=== PATIENT | female | born 1970 | race Caucasian/White ===

== ENCOUNTER 2019-02-25 20:54 | Emergency (ER) | payer OTHER ==
[~2019-02-25] VITALS: Ht 147.3 cm; Wt 56.0 kg
[2019-02-25 20:59] VITALS: Ht 147.3 cm; Wt 56.0 kg
[2019-02-26] MEDS ORDERED: IBUP-1542 PO (01:53)
--- NOTE | 2019-02-26 01:57 | ERD ---
ER Documentation Chief Complaint Chief Complaint vaginal bleeding/abd pain x 15 minutes, states 14 weeks HPI 48-year-old female presents with vaginal bleeding for last day. She has a history of approximately 14-week by dates. She did however see her OB this week who told her there was no heart tones earlier in the week. Her last normal ultrasound was approximately 1 month ago. She did pass significant amount of blood and possibly clots or tissue at home. She is a G5 para 4. ROS All systems reviewed and are negative except as per history of present illness. Medications Home Meds Active Scripts Ibuprofen* (Motrin*) 600 Mg Tab, 600 MG PO Q6, #15 TAB Prov:JACOB GUO MD 02/26/19 Allergies Allergies: Coded Allergies: No Known Drug Allergies (Verified Allergy, Unknown, 02/25/19) PMhx/Soc Medical and Surgical Hx: pt denies Medical Hx, pt denies Surgical Hx Hx Alcohol Use: No Hx Substance Use: No Hx Tobacco Use: No Smoking Status: Never smoker FmHx Family History: No diabetes, No coronary disease, No other Physical Exam Vitals Vital Signs Date Temp Pulse Resp B/P (MAP) Pulse Ox O2 O2 Flow FiO2 Time Delivery Rate 02/26/19 98.0 68 16 114/75 98 Room Air 01:21 (88) 02/25/19 97.5 93 18 163/82 98 20:59 (109) Physical Exam Const: No acute distress Head: Atraumatic Eyes: Normal Conjunctiva ENT: Normal External Ears, Nose and Mouth. Neck: Full range of motion. No meningismus. Resp: Clear to auscultation bilaterally Cardio: Regular rate and rhythm, no murmurs Abd: Soft, non tender, non distended. Normal bowel sounds Skin: No petechiae or rashes Back: No midline or flank tenderness Ext: No cyanosis, or edema Neur: Awake and alert Psych: Normal Mood and Affect Result Diagram: 02/26/19 0301 02/26/19 0301 Results 24 hrs Laboratory Tests Test 02/25/19 22:40 02/25/19 23:44 02/26/19 03:01 Urine Color BRAEDEN Urine Clarity SLIGHTLY CLOUDY Urine pH 7.0 Urine Specific [place] 1.013 Urine Ketones NEGATIVE mg/dL Urine Nitrite NEGATIVE mg/dL Urine Bilirubin NEGATIVE mg/dL Urine Urobilinogen NEGATIVE mg/dL Urine Leukocyte Esterase NEGATIVE [place]/ul Urine Microscopic RBC > 182 /HPF Urine Microscopic WBC 7 /HPF Urine Bacteria FEW /HPF Urine Hemoglobin 3+ mg/dL Urine Glucose NEGATIVE mg/dL Urine Total Protein NEGATIVE mg/dl White Blood Count 11.2 10^3/ul 7.7 10^3/ul Red Blood Count 4.17 10^6/ul 3.38 10^6/ul Hemoglobin 13.0 g/dl 10.5 g/dl Hematocrit 37.4 % 30.8 % Mean Corpuscular Volume 89.7 fl 91.1 fl Mean Corpuscular Hemoglobin 31.2 pg 31.1 pg Mean Corpuscular 34.8 g/dl 34.1 g/dl Hemoglobin Concent Red Cell Distribution Width 12.3 % 12.5 % Platelet Count 169 10^3/UL 138 10^3/UL Mean Platelet Volume 11.1 fl 10.5 fl Immature Granulocytes % 0.400 % 0.300 % Neutrophils % 81.4 % 62.1 % Lymphocytes % 12.2 % 28.3 % Monocytes % 4.9 % 7.7 % Eosinophils % 0.8 % 1.2 % Basophils % 0.3 % 0.4 % Nucleated Red Blood Cells % 0.0 /100WBC 0.0 /100WBC Immature Granulocytes # 0.050 10^3/ul 0.020 10^3/ul Neutrophils # 9.1 10^3/ul 4.8 10^3/ul Lymphocytes # 1.4 10^3/ul 2.2 10^3/ul Monocytes # 0.6 10^3/ul 0.6 10^3/ul Eosinophils # 0.1 10^3/ul 0.1 10^3/ul Basophils # 0.0 10^3/ul 0.0 10^3/ul Nucleated Red Blood Cells # 0.0 10^3/ul 0.0 10^3/ul Beta HCG, Quantitative 340.7 mIU/ml Sodium Level 139 mmol/L Potassium Level 3.2 mmol/L Chloride Level 110 mmol/L Carbon Dioxide Level 23 mmol/L Anion Gap 6 Blood Urea Nitrogen 12 mg/dl Creatinine 0.54 mg/dl Est Glomerular Filtrat > 60 mL/min Rate mL/min Glucose Level 142 mg/dl Calcium Level 7.7 mg/dl Current Medications Medications Dose Sig/Sofia Start Time Status Last (Trade) Ordered Route PRN Stop Time Admin Dose Reason Admin Sodium 1,000 ml @ Q1H STAT 02/26/19 DC 02/26/19 Chloride 1,000 mls/hr IV 02:22 02/26/19 02:45 03:21 Procedures/MDM Pelvic ultrasound shows thickened endometrium without visualized intrauterine . No evidence of ectopic . Patient is Rh+. Quantitative hCG is 340. Urine shows no signs of infection or significant acute abnormalities except for hemoglobin. Patient has elevated blood pressure at 163/82. Pelvic exam with site engineer shows clots and tissue in the vaginal vault which were removed. Bleeding stopped after removing the clots and os was noted to be mostly closed. Follow-up ultrasound shows still thickened endometrium without intrauterine or ovoid lesion. Patient had another episode of bleeding and additional pelvic exam with site engineer was obtained. Additional clots were removed at this time tissue consistent with products of conception were removed. Bleeding subsequently stopped again. Patient did have what appears to be a vasovagal episode and dizziness /syncope while being up to use the bathroom. IV was obtained and patient was administered 1 L normal saline IV. hemoGlobin normal. After observation treatment and fluids patient was able to ambulate and felt much better without recurrent dizziness, patient had no further episodes of vaginal bleeding throughout the remainder of her ER course. Patient was discharged home with recommendations for recheck hormone level in 2 to 3 days, return precautions for fevers, recurrent bleeding, new worsening symptoms. Cu rrent signs and symptoms do not suggest ectopic , septic , acute surgical abdomen, hemorrhaging. Departure Diagnosis: Primary Impression: Incomplete miscarriage Additional Impression: Vaginal bleeding in patient at less than 20 weeks ges... Condition: Stable Patient Instructions: Miscarriage (Incomplete) Additional Instructions: no hay emarazo horita. Cheque otro vez con kan doctor primario en el proximo doan or regresa para mas o nueva simptomas. cheque hormones otro vez 2-3 days. JACOB GUO MD Feb 26, 2019 01:57
[2019-02-26] MEDS ORDERED: SOD CHLORIDE 0.9% 1,000 ML IV STA (02:22)
[2019-02-26 04:02] VITALS: BP 100/60; PULSE 70; RESP 16
== END 2019-02-26 04:04 | disposition home or self-care (01) ==
LOC: FTE 20:54 → E/R 02-26 04:04
DX: O03.4 Incomplete spontaneous abortion without complication (principal)
CPT/HCPCS: 36415; 76805; 76817; 80048; 81001; 84702; 85025; 86850; 86900; 86901; 88305; J7030; Z7502